=== PATIENT | male | born 1990 | race Caucasian/White ===

== ENCOUNTER 2024-09-19 08:46 | Emergency (ER) | payer BC, OTHER ==
[~2024-09-19] VITALS: Ht 175.3 cm; Wt 72.6 kg
[2024-09-19 10:13] LABS: BASOPHILS % (AUTO) 0.8 % (0.0-2.0); EOSINOPHILS % (AUTO) 0.6 % (0.0-7.0); HEMATOCRIT 39.5 % (36.7-47.1); HEMOGLOBIN 13.3 g/dL (12.5-16.3); LYMPHOCYTES # (AUTO) 0.9 K/uL (0.8-4.8); LYMPHOCYTES % (AUTO) 14.4 % (20.5-51.5); MEAN CORPUSCULAR HGB CONC 34 g/dL (32.5-36.3); MONOCYTES # (AUTO) 0.3 K/uL (0.1-1.30); MONOCYTES % (AUTO) 4.4 % (0.0-11.0); NEUTROPHILS # (AUTO) 4.9 K/uL (1.8-8.9); NEUTROPHILS % (AUTO) 79.8 % (38.5-71.5); PLATELET COUNT (AUTO) 416 K/uL (152-348); RED BLOOD CELL COUNT(AUTO) 4.94 MIL/uL (4.06-5.63); RED CELL DISTRIBUTION WIDTH 15.7 % (12.1-16.2); WHITE BLOOD COUNT (AUTO) 6.2 K/uL (3.6-10.2)
[2024-09-19 10:21] LABS: DIFFERENTIAL COMMENT 1
[2024-09-19 10:32] LABS: ALANINE AMINOTRANSFERASE 27 U/L (16-63); ALKALINE PHOSPHATASE 115 U/L (50-136); ASPARTATE AMINOTRANSFERASE 13 U/L (15-37); BILIRUBIN,DIRECT 0.2 mg/dL (0.0-0.2); BILIRUBIN,TOTAL 0.4 mg/dL (0.2-1.0); CALCIUM 9.2 mg/dL (8.5-10.1); CARBON DIOXIDE 28 mmol/L (21-32); CHLORIDE 103 mmol/L (98-107); CREATININE 0.6 mg/dL (0.6-1.3); GLUCOSE 104 mg/dL (74-106); POTASSIUM 3.8 mmol/L (3.5-5.1); SODIUM SERUM 140 mmol/L (136-145); TOTAL PROTEIN, SERUM 9.4 g/dL (6.4-8.2); UREA NITROGEN, BLOOD 8 mg/dL (7-18)
[2024-09-19 10:33] LABS: *MONOTEST NEGATIVE (NEGATIVE)
[2024-09-19] MEDS ORDERED: IV NORMAL SALINE 250 ML IV ONE (10:56)
[2024-09-19] MEDS ORDERED: SWABABLE VALVE TRANSFER SET EA MC ONE (10:57)
[2024-09-19] MEDS ORDERED: IOHEXOL 300MG/ML 100 ML INFUS..BTL ONE (10:57)
[2024-09-19 11:09] LABS: HIV-1 p24 ANTIGEN NON REACTIVE (NONREACTIVE); HIV-1/2 ANTIBODY NON REACTIVE (NONREACTIVE)
[2024-09-19 11:27] LABS: *BILIRUBIN,URIN NEGATIVE (NEGATIVE); *BLOOD, URINE NEGATIVE (NEGATIVE); *CLARITY,URINE CLEAR (CLEAR); *COLOR,URINE YELLOW (YELLOW); *KETONES,URINE NEGATIVE (NEGATIVE); *PROTEIN,URINE NEGATIVE (NEGATIVE); *UROBILINOGEN,URINE 0.2 E.U./dl (NORMAL); LEUKOCYTE ESTERASE ,URINE NEGATIVE (NEGATIVE); NITRITE, URINE NEGATIVE (NEGATIVE); PH,URINE 7.5 (5.0-8.0); UGLUCOSE NEGATIVE (NEGATIVE)
[2024-09-19] MEDS ORDERED: diphenhydrAMINE 50 MG/1 ML VIAL ONE (11:44)
[2024-09-19] MEDS ORDERED: methylPREDNISolone SOD SUCC 125 MG/2 ML VIAL ONE (11:44)
[2024-09-19] MEDS ORDERED: FAMOTIDINE. 20 MG/2 ML VIAL IV ONE (11:45)
[2024-09-19] MEDS: FAMOTIDINE. 20 MG/2 ML VIAL IV ONE (11:46)
[2024-09-19] MEDS: diphenhydrAMINE 50 MG/1 ML VIAL IV ONE (11:46)
[2024-09-19] MEDS: methylPREDNISolone SOD SUCC 125 MG/2 ML VIAL IV ONE (11:46)
[2024-09-19 14:02] VITALS: BP 117/54; TEMP 99; O2SAT 98
== END 2024-09-19 13:48 | disposition home or self-care (01) ==
LOC: ER 08:46
DX: L02.11 Cutaneous abscess of neck (principal); F17.200 Nicotine dependence, unspecified, uncomplicated; R94.31 Abnormal electrocardiogram [ECG] [EKG]; Z20.822 Contact with and (suspected) exposure to COVID-19; Z91.041 Radiographic dye allergy status
CPT/HCPCS: 99285; 70491; 96374; 96375; 71045; 87426; 80076; 80048; 81003; 87806; 85025; 85379; 85651; 85730; 86308; 84484; 36415; 71260; 93005; J1200; J3490; J2919; Q9967; A4606; A4663